=== PATIENT | female | born 1995 | race African-American/Black ===

== ENCOUNTER 2019-07-09 17:05 | Outpatient (CLI) | payer MEDICAID | END 2019-07-09 17:06 | disposition home or self-care (01) | LOC: COV 17:05 | PROVIDERS: ATTEND Family Medicine | DX: R05 Cough (principal); R50.9 Fever, unspecified ==

== ENCOUNTER 2019-09-18 14:17 | Outpatient (CLI) | payer MEDICAID | END 2019-09-18 14:18 | disposition EMS.NT | LOC: EMS 14:17 | PROVIDERS: ATTEND Surgery | DX: R04.0 Epistaxis (principal) ==

== ENCOUNTER 2019-12-26 07:00 | Outpatient (CLI) | payer MEDICAID ==
[2019-12-26 19:14] LABS: BILIRUBIN,URINE NEGATIVE (NEGATIVE); GLUCOSE, URINE (UA) NEGATIVE (NEGATIVE); KETONES,URINE (UA) NEGATIVE (NEGATIVE); LEUKOCYTE ESTERASE, URINE NEGATIVE (NEGATIVE); NITRITE,URINE NEGATIVE (NEGATIVE); OCCULT BLOOD,URINE MODERATE (NEGATIVE); PROTEIN,URINE NEGATIVE (NEGATIVE); UROBILINOGEN,URINE 0.2 (NORMAL) E.U./dL (NORMAL)
[2019-12-26 19:21] LABS: CLARITY,URINE HAZY (CLEAR)
[2019-12-26 19:52] LABS: BACTERIA,URINE None Seen /HPF (None Seen); SQUAMOUS EPITHELIAL CELL,UR NONE SEEN (<= Few)
== END 2019-12-26 23:59 | disposition home or self-care (01) ==
LOC: LAB.R 07:00
PROVIDERS: ATTEND Nurse Practitioner Obstetrics & Gynecology
DX: R30.0 Dysuria (principal)
CPT/HCPCS: 81001; 87086

== ENCOUNTER 2020-03-25 13:15 | Emergency (ER) | payer MEDICAID ==
[2020-03-25 14:01] LABS: RAPID STREP SCREEN Negative (Negative)
--- NOTE | 2020-03-25 15:12 | ED Physician Documentation ---
History of Present Illness - Stated complaint Stated Complaint: SORE THROAT/L EAR PX - Chief complaint Chief Complaint: Heent - History obtained from History obtained from: Patient - History of Present Illness Timing: Prior to arrival - Additonal information Additional information: TIA 4-year-old female presents to the emergency department with chief complaint of 2 days sore throat left ear pain. 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 She did have a COVID-19 test yesterday that was negative. She denies any fever or tonsillar exudate. No cough. No abdominal pain nausea vomiting or dysuria. Review of Systems Constitutional: denies: Fever, Chills Eyes: reports: Reviewed and negative Ears: reports: Ear pain. denies: Drainage/discharge, Tinnitus/ringing Nose: denies: Rhinorrhea / runny nose, Congestion, Foreign Body Throat: reports: Sore throat. denies: Dental pain / toothache, Oral lesions / sores, Swollen tonsils, Swallowed foreign body Cardiac: denies: Chest pain / pressure, Palpitations Respiratory: denies: Dyspnea, Cough GI: denies: Abdominal Pain, Nausea, Vomiting : denies: Dysuria, Frequency Skin: denies: Rash, Lesions Musculoskeletal: reports: Reviewed and negative Neurologic: reports: Reviewed and negative PD PAST MEDICAL HISTORY - Present Medications Home Medications: Ambulatory Orders Medication Instructions Recorded Confirmed No Known Home Medications 03/25/20 03/25/20 - Allergies Allergies/Adverse Reactions: Allergies Allergy/AdvReac Type Severity Reaction Status Date / Time No Known Drug Allergies Allergy Verified 03/25/20 13:29 PD ED PE EXPANDED - General General: Alert, No acute distress, Well developed/nourished - HEENT HEENT: PERRL, EOMI, Ears normal, Moist mucous membranes, Pharyngeal erythema, Dentition normal, Other (Uvula midline. No soft palate swelling or asymmetry. Normal phonation. No trismus.). No: Right frontal sinus TTP, Left frontal sinus TTP, Right maxillary sinus TTP, Left maxillary sinus TTP, Nasal congestion - Eyes Eyes: PERRL - Neck Neck: Supple w/out meningeal sx. No: Adenopathy, No tenderness (Mild tendernes anterior cervical chain without lymphadenopathy noted) - Cardiac Cardiac: Regular Rate, Radial strong equal, Cap refill < 2 sec. No: Murmur Present - Respiratory Respiratory: Clear to ausultation casimiro. No: Distress, Labored - Abdomen Abdomen: Normal Bowel sounds. No: Tender to palpation Results - Vitals Vitals: Vital Signs - 24 hr 03/25/20 13:29 Temperature 37.3 C Heart Rate 67 Respiratory 16 Rate Blood Pressure 113/66 O2 Saturation 100 Oxygen O2 Source Room air - Labs Labs: Laboratory Tests 03/25/20 13:50 Group A Strep Rapid Negative PD MEDICAL DECISION MAKING - ED course Complexity details: reviewed results, re-evaluated patient, considered differential, d/w patient ED course: 24-year-old female presents emergency department with 2 days of a sore throat. She has no fevers cough. No tonsillar exudate. She was tested yesterday for COVID-19 and she works at [employer]. Her test was negative. Rapid strep is negative today. We will plan to discharge her with recommendation for warm salt water gargle ibuprofen and Tylenol. Defer antibiotics unless culture positive. A note excusing her from work for few days was given Departure - Departure Disposition: 01 Home, Self Care Clinical Impression: Sore throat (viral) Condition: Stable Record reviewed to determine appropriate education?: Yes Instructions: ED Pharyngitis Viral Comments: Ronna your rapid strep test was negative. We will not start you on antibiotics unless the culture is positive. However the most likely cause of your sore throat is a virus. This will run its course over the next 3 to 4 days. I recommend lots of fluids as well as Tylenol and ibuprofen [id number] for pain. If at any point you are unable to swallow normally, have a high fever, cannot speak normally then please return to the ER for second look
[2020-03-25 15:24] VITALS: BP 112/68
== END 2020-03-25 15:23 | disposition home or self-care (01) ==
LOC: ED 13:15
DX: J02.8 Acute pharyngitis due to other specified organisms (principal); B97.89 Other viral agents as the cause of diseases classified elsewhere
CPT/HCPCS: 87070; 87430; 99283